=== PATIENT | male | born 1950 | race Caucasian/White ===

== ENCOUNTER 2024-07-03 22:34 | Emergency (ER) | payer OTHER, BC ==
[2024-07-03] MEDS ORDERED: LIDOCAINE 2% W/EPI 1:200,000 MPF 20 ML VIAL IM ONE (23:00)
--- NOTE | 2024-07-03 23:38 | RAD REPORT ---
EXAM: CT Head/Brain Without Contrast 07/03/2024 at 11: 02 PM HISTORY: head injury COMPARISON: None TECHNIQUE: Head/brain axial images acquired without contrast. Coronal and sagittal reformats created. Exam performed according to departmental dose-optimization program which includes automated exposure control, adjustment of mA and/or kV according to patient size, and/or use of iterative recon struction technique. FINDINGS: No midline shift, mass effect, acute intracranial hemorrhage, or hydrocephalus. Moderate-sized, right parietal lobe focal cerebral volume loss or cystic encephalomalacia. Minimal mucosal thickening in all paranasal sinuses. Mastoid air cells clear. No skull fracture or significant skull lesion. IMPRESSION: 1. No CT evidence of acute intracranial abnormality or skull fracture. 2. Moderate-sized, right parietal lobe focal cerebral volume loss or cystic encephalomalacia is of in determinate etiology and age. No old exam available for comparison. Causes include old ischemic infarct or old hemorrhage. Electronically signed by: Ky Rojas MD 07/03/2024 11:33 PM CDT RP Due to temporary technical issues with the PACS/Agenda reporting system, reports are being timothy d by the in-house radiologist without review as a courtesy to ensure prompt reporting the interpreting radiologist is fully responsible for the content of the report. Transcribed Date/Time: 07/03/2024 11:37 PM
[2024-07-04] MEDS ORDERED: LIDOCAINE 1% 20 ML MDV ONE (00:43)
--- NOTE | 2024-07-04 01:21 | EDPHYS ---
Physician Documentation [facility] Name: Jonas Zee Age: 74 yrs Sex: Male : 1950 Arrival Date: 07/03/2024 Time: 22:34 Bed [id number] Private MD: ED Physician Alfa Smith HPI: 07/03 22:46 This 74 yrs old Male presents to ER via Unassigned with complaints of sp4 Laceration To Head, Head Injury-Adult. 07/04 04:13 74-year-old male presents with acute fall at home and laceration to the posterior sp4 scalp. Patient states he has history of several strokes and has poor balance. He fell today striking his head against the grand piano. . Historical: - Allergies: 07/03 22:47 NeoProfen (ibuprofen lysn)(PF); kd3 - Immunization history:: Adult Immunizations up to date. - Infectious Disease History:: Denies. - Social history:: Smoking status: Patient denies any tobacco usage or history of. - Family history:: not pertinent. ROS: 07/04 04:15 Constitutional: Negative for fever, chills, and weight loss, today for scalp sp4 laceration. All other systems are negative, Exam: 04:15 Constitutional: This is a well developed, well nourished patient who is awake, alert, sp4 and in no acute distress. Head/Face: Normocephalic, patient has a large 8 cm long C-shaped posterior scalp laceration with apparent skin flap Eyes: Pupils equal round and reactive to light, extra-ocular motions intact. Lids and lashes normal. Conjunctiva and sclera are not injected. Cornea within normal limits. Periorbital areas with no swelling, redness, or edema. ENT: Nares patent. No nasal discharge, no septal abnormalities noted. Tympanic membranes are normal and external auditory canals are clear. Oropharynx with no redness, swelling, or masses, exudates, or evidence of obstruction, uvula midline. Mucous membranes moist. Neck: Trachea midline, no thyromegaly or masses palpated, and no cervical lymphadenopathy. Supple, full range of motion without nuchal rigidity, or vertebral point tenderness. Chest/axilla: Normal chest wall appearance and motion. Nontender with no deformity. No lesions are appreciated. Cardiovascular: Regular rate and rhythm with a normal S1 and S2. No gallops, murmurs, or rubs. Normal PMI, no JVD. No pulse deficits. Respiratory: Lungs have equal breath sounds bilaterally, clear to auscultation and percussion. No rales, rhonchi or wheezes noted. No increased work of breathing, no retractions or nasal flaring. Abdomen/GI: Soft, with normal bowel sounds. No distension or tympany. No guarding or rebound. No evidence of tenderness throughout. Back: No spinal tenderness. No costovertebral tenderness. Skin: Warm, dry with normal turgor. Normal color with no rashes, no lesions, and no evidence of cellulitis. MS/ Extremity: Pulses equal, no cyanosis. Neurovascular intact. Full, normal range of motion. Neuro: Awake and alert, GCS 15, oriented to person, place, time, and situation. Cranial nerves II-XII grossly intact. Motor strength 5/5 in all extremities. Sensory grossly intact. Psych: Awake, alert, with orientation to person, place and time. Behavior, mood, and affect are within normal limits Vital Signs: 07/03 22:44 BP 169 / 76; Pulse 98; Resp 16; Temp 98.1(O); Pulse Ox 96% on R/A; Weight 92.08 kg; kd3 Height 5 ft. 11 in. ; 07/04 00:37 BP 157 / 77; Pulse 89; Resp 17; Pulse Ox 97% on R/A; kd3 01:38 BP 146 / 79; Pulse 92; Resp 17; Temp 98.1; Pulse Ox 95% ; Pain 0/10; bm8 07/03 22:44 Body Mass Index 28.31 (92.08 kg, 180.34 cm) kd3 01:38 Pain Scale: Adult bm8 [place] Coma Score: 01:38 Eye Response: spontaneous(4). Motor Response: obeys commands(6). Verbal Response: bm8 oriented(5). Total: 15. 04:15 Eye Response: spontaneous(4). Motor Response: obeys commands(6). Verbal Response: sp4 oriented(5). Total: 15. Laceration: 01:16 Wound Repair of 8cm ( 3.1in ) fascia involved laceration to left parietal area and sp4 right parietal area - Large 8 cm laceration right posterior parietal scalp C shaped . Irregularly shaped.. Minimal bleeding noted.. Moderate contamination.. Distal neuro/vascular/tendon intact. Anesthesia: Wound infiltrated with 20 mls of 1% lidocaine w/ Epi. Wound prep: Moderate cleansing with hibiclenz by me, Copious irrigation. Skin closed with 12 2-0 Silk using vertical mattress sutures and sterile technique. Dressed with 4x4's, Kerlix, pressure dressing. Patient tolerated well. MDM: 07/03 22:47 Medical Screening Exam initiated sp4 07/04 01:16 Data reviewed: vital signs, nurses notes. ED course: Duration was repaired and patient sp4 is stable for discharge home.. 01:23 ED course: EXAM: CT Head/Brain Without Contrast 07/03/2024 at 11:02 PM HISTORY: head sp4 injury COMPARISON: None TECHNIQUE: Head/brain axial images acquired without contrast. Coronal and sagittal reformats created. Exam performed according to departmental dose-optimization program which includes automated exposure control, adjustment of mA and/or kV according to patient size, and/or use of iterative reconstruction technique. FINDINGS: No midline shift, mass effect, acute intracranial hemorrhage, or hydrocephalus. Moderate-sized, right parietal lobe focal cerebral volume loss or cystic encephalomalacia. Minimal mucosal thickening in all paranasal sinuses. Mastoid air cells clear. No skull fracture or significant skull lesion. IMPRESSION: 1. No CT evidence of acute intracranial abnormality or skull fracture. 2. Moderate-sized, right parietal lobe focal cerebral volume loss or cystic encephalomalacia is of indeterminate etiology and age. No old exam available for comparison. Causes include old ischemic infarct or old hemorrhage. . 04:15 Differential diagnosis: superficial laceration, tendon injury, vascular injury. sp4 07/03 22:47 Order name: CT Head Brain wo Cont sp4 07/03 22:47 Order name: Dressing - Wound; Complete Time: 00:38 sp4 07/03 22:47 Order name: Gloves, Sterile; Complete Time: 00:38 sp4 07/03 22:47 Order name: Setup Suture Tray; Complete Time: 00:38 sp4 Administered Medications: 00:38 Drug: Lidocaine-Epinephrine Infiltration -1%: (1:100,000) 40 ml 20 ml Infiltration kd3 once; to bedside Volume: 20 ml; Route: Infiltration; 01:37 Follow up: Response: No adverse reaction bm8 Disposition: 04:16 Chart complete. sp4 Disposition Summary: 07/04/24 01:20 Discharge Ordered Notes: Location: Home sp4 Problem: new sp4 Symptoms: have improved sp4 Condition: Stable sp4 Diagnosis - Laceration without foreign body of scalp sp4 - Closed head injury, complex laceration posterior parietal scalp sp4 Followup: sp4 - With: Private Physician - When: After 20 days - suture removal - Reason: Recheck today's complaints Discharge Instructions: - Discharge Summary Sheet sp4 - Laceration Care, Adult, [id number] sp4 Forms: - Patient Portal Instructions sp4 Prescriptions: - Cephalexin 500 mg Oral Capsule - take 1 capsule ORAL route every 12 hours for 10 days; 20 capsule; Refills: 0, sp4 Product Selection Permitted - Tramadol 50 mg Oral Tablet - take 1 tablet ORAL route every 8 hours as needed; 12 tablet; Refills: 0, sp4 Product Selection Permitted Signatures: Dispatcher [employer] Kaitlin Echavarria RN RN kd3 Alfa Smith MD MD sp4 Сергей Chauhan RN bm8 Corrections: (The following items were deleted from the chart) 01:19 01:16 Wound Repair of 8cm ( 3.1in ) fascia involved laceration to left parietal area sp4 and right parietal area - Large 8 cm laceration right posterior parietal scalp C shaped . Irregularly shaped.. Minimal bleeding noted.. Moderate contamination.. Distal neuro/vascular/tendon intact. Anesthesia: Wound infiltrated with 20 mls of 1% lidocaine w/ Epi. Wound prep: Moderate cleansing with hibiclenz by vt, Copious irrigation. Skin closed with 16 2-0 Silk using vertical mattress sutures and sterile technique. Dressed with 4x4's, Kerlix, pressure dressing. Patient tolerated well. sp4
--- NOTE | 2024-07-04 01:21 | ER ---
Nurse's Notes [facility] Name: Jonas Zee Age: 74 yrs Sex: Male : 1950 Arrival Date: 07/03/2024 Time: 22:34 Bed [id number] Private MD: Diagnosis: Laceration without foreign body of scalp;Closed head injury, complex laceration posterior parietal scalp Presentation: 07/03 22:44 Chief complaint: Patient states: Patient received from the lobby. Patient has blood on kd3 his face and neck but no active bleed. Patient is alert and oriented x 4. Patient vss. Lac to the back of the head has been examined by provider at bedside. Coronavirus screen: Vaccine status: Patient reports receiving the 2nd dose of the covid vaccine. Ebola Screen: No symptoms or risks identified at this time. Complicating Factors: on Eliquis. Initial Sepsis Screen: Does the patient meet any 2 criteria? No. Patient's initial sepsis screen is negative. Does the patient have a suspected source of infection? No. Patient's initial sepsis screen is negative. Risk Assessment: Do you want to hurt yourself or someone else? Patient reports no desire to harm self or others. Onset of symptoms was July 03, 2024. 22:44 Method Of Arrival: Wheelchair kd3 22:44 Acuity: LEXX 3 kd3 Triage Assessment: 22:44 General: Appears in no apparent distress. Behavior is calm, cooperative. Pain: kd3 Complains of pain in scalp. Injury Description: Laceration sustained to scalp. Historical: - Allergies: 22:47 NeoProfen (ibuprofen lysn)(PF); kd3 - Immunization history:: Adult Immunizations up to date. - Infectious Disease History:: Denies. - Social history:: Smoking status: Patient denies any tobacco usage or history of. - Family history:: not pertinent. Screenin:48 [facility] ED Fall Risk Assessment (Adult) History of falling in the last 3 months, kd3 including since admission Yes- single mechanical fall (1 pt) Confusion or Disorientation No (0 pts) Intoxicated or Sedated No (0 pts) Impaired Gait No (0 pts) Mobility Assist Device Used No (0 pt) Altered Elimination No (0 pt) Score/Fall Risk Level 0 - 2 = Low Risk Oriented to surroundings. Abuse screen: Denies threats or abuse. Denies injuries from another. Nutritional screening: No deficits noted. Tuberculosis screening: No symptoms or risk factors identified. Assessment: 22:49 Musculoskeletal: No deficits noted. kd3 23:01 General: Patient returned to the room from CT via stretcher . kd3 07/04 00:37 General: Appears in no apparent distress. Pain: Denies pain. Neuro: Level of kd3 Consciousness is awake, alert, obeys commands, Oriented to person, place, time, situation. Respiratory: Airway is patent Trachea midline Respiratory effort is even, unlabored, Respiratory pattern is regular, symmetrical. 01:38 Reassessment: Patient appears in no apparent distress at this time. Patient and/or bm8 family updated on plan of care and expected duration. Pain level reassessed. Patient is alert, oriented x 3, equal unlabored respirations, skin warm/dry/pink. Patient denies pain at this time. Patient states feeling better. Patient states symptoms have improved. Vital Signs: 07/03 22:44 BP 169 / 76; Pulse 98; Resp 16; Temp 98.1(O); Pulse Ox 96% on R/A; Weight 92.08 kg; kd3 Height 5 ft. 11 in. ; 07/04 00:37 BP 157 / 77; Pulse 89; Resp 17; Pulse Ox 97% on R/A; kd3 01:38 BP 146 / 79; Pulse 92; Resp 17; Temp 98.1; Pulse Ox 95% ; Pain 0/10; bm8 07/03 22:44 Body Mass Index 28.31 (92.08 kg, 180.34 cm) kd3 01:38 Pain Scale: Adult bm8 [place] Coma Score: 01:38 Eye Response: spontaneous(4). Motor Response: obeys commands(6). Verbal Response: bm8 oriented(5). Total: 15. 04:15 Eye Response: spontaneous(4). Motor Response: obeys commands(6). Verbal Response: sp4 oriented(5). Total: 15. ED Course: 07/03 22:34 Patient arrived in ED. ra3 22:44 Kaitlin Alejandro RN is Primary Nurse. kd3 22:44 Arm band placed on right wrist. kd3 22:46 Alfa Smith MD is Attending Physician. sp4 22:47 Triage completed. kd3 22:49 Patient has correct armband on for positive identification. Provided Education on: CT kd3 scan . 23:03 CT Head Brain wo Cont In Process Unspecified. EDMS 07/04 01:38 Assist provider with laceration repair on back of head that was between 7.6 to 12.5 cm bm8 using sutures. Set up tray. Performed by Alfa Smith MD Dressed with Kerlix, Neosporin, Patient tolerated well. IV discontinued, intact, bleeding controlled, No redness/swelling at site. Pressure dressing applied. Administered Medications: 00:38 Drug: Lidocaine-Epinephrine Infiltration -1%: (1:100,000) 40 ml 20 ml Infiltration kd3 once; to bedside Volume: 20 ml; Route: Infiltration; 01:37 Follow up: Response: No adverse reaction bm8 Medication: 07/03 22:49 VIS not applicable for this client. kd3 Outcome: 07/04 01:20 Discharge ordered by . sp4 01:38 Discharged to home via wheelchair, bm8 01:38 Condition: stable 01:38 Discharge instructions given to patient, family, Instructed on discharge instructions, follow up and referral plans. Demonstrated understanding of instructions, follow-up care, medications, Prescriptions given X 2, 01:43 Patient left the ED. bm8 Signatures: Dispatcher [employer] EDNE Kaitlin Alejandro, BENJAMIN RN [id number] Alfa Smith MD MD sp4 Sydni Diana ra3 Сергей Chauhan, RN RN bm8
[2024-07-04 04:54] VITALS: TEMP 98.1
[2024-07-04 04:58] VITALS: BP 146/79; O2SAT 95
== END 2024-07-04 01:43 | disposition home or self-care (01) ==
LOC: ER 22:34
DX: S01.01XA Laceration without foreign body of scalp, initial encounter (principal); W18.30XA Fall on same level, unspecified, initial encounter; Y92.009 Unspecified place in unspecified non-institutional (private) residence as the place of occurrence of the external cause
CPT/HCPCS: 70450; 99284; 12034; J2001